=== PATIENT | female | born 1990 | race African-American/Black ===

== ENCOUNTER 2022-08-22 01:45 | Emergency (ER) | payer OTHER ==
[~2022-08-22] VITALS: Ht 175.3 cm; Wt 90.0 kg
[2022-08-22] MEDS ORDERED: ONDANSETRON HCL 4MG/2ML INJ IV ONE (03:15)
[2022-08-22] MEDS ORDERED: MORPHINE SULFATE 4 MG/ML CPJ (NOT FOR IM USE) IV ONE (03:15)
[2022-08-22] MEDS: AMPICILLIN SOD/SULBACTAM NA 3 G in SODIUM CHLORIDE 0.9% 100 ML IV SCH ×2 (04:22→11:00)
[2022-08-22 04:53] LABS: HEMATOCRIT. 26.9 % (36.0-48.0); HEMOGLOBIN. 8.1 g/dL (12.0-16.0); MEAN CORPUSCULAR HEMOGLOBIN 20.3 pg (28.0-32.0); MEAN CORPUSCULAR VOLUME 66.9 fL (81.0-99.0); PLATELET 328 x1000/uL (130-400); RED BLOOD CELL COUNT 4.02 mill/uL (4.2-5.4); RED CELL DISTRIBUTION WIDTH 15.2 % (11.6-14.6)
[2022-08-22] MEDS ORDERED: TETANUS, DIPHTHERIA, PERTUSSIS VAC/PF 0.5ML (>10YR OLD) IM ONE (05:00)
[2022-08-22 05:01] LABS: CHLORIDE 112 mEq/L (98-107)
[2022-08-22 05:30] LABS: PLATELET ESTIMATE NORMAL
[2022-08-22] MEDS ORDERED: IOHEXOL-350 100 ML BOTTLE ONE ×2 (05:39→06:54)
[2022-08-22] MEDS ORDERED: ONDANSETRON HCL 4MG/2ML INJ IV STA ×2 (06:49→11:01)
[2022-08-22] MEDS ORDERED: MORPHINE SULFATE 4 MG/ML CPJ (NOT FOR IM USE) IV STA ×2 (06:49→11:01)
[2022-08-22 14:51] VITALS: BP 143/77
== END 2022-08-22 15:52 | disposition short-term general hospital (02) ==
LOC: ER 01:45
DX: S92.002B Unspecified fracture of left calcaneus, initial encounter for open fracture (principal); J45.909 Unspecified asthma, uncomplicated; Z00.00 Encounter for general adult medical examination without abnormal findings; Z20.822 Contact with and (suspected) exposure to COVID-19; V49.50XA Passenger injured in collision with unspecified motor vehicles in traffic accident, initial encounter; Y93.89 Activity, other specified; Y92.89 Other specified places as the place of occurrence of the external cause; Y99.8 Other external cause status
CPT/HCPCS: 36415; 73590; 73610; 73630; 73706; 80053; 81025; 85025; 87426; 90471; 90715; 96365; 96375; 96376; 99285; C9803; J0295; J2270; J2405; J7050; Q9967; Z7610